=== PATIENT | female | born 1970 | race Caucasian/White ===

== ENCOUNTER → 2016-04-30 | Outpatient (CLI) | payer BC ==
[~2016-04-30] MED LIST: ALBUAER2 INH; ASPI81TA28 PO; CHOL20009 PO; LEVO50TA6 PO; MONT1TAB5 PO; MULT-513 PO; OPTIRAY 320 IV PRN
--- NOTE | 2016-04-30 07:36 | DIAGNOSTIC IMAGING REPORT ---
CHEST CT WITH CONTRAST CT DOSE: 267.53 mGy.cm HISTORY: Pulmonary nodules F/U PULMONARY NODULES TECHNIQUE: Multiaxial CT images of the chest were performed following the intravenous administration of contrast. COMPARISON: 10/21/2015 FINDINGS: Unchanging micronodule area of the right upper lobe and left upper lobe. No change in size or configuration. No new or interval findings. Lungs otherwise appear clear. There is no significant mediastinal or hilar adenopathy. Fatty infiltration of liver is noted. IMPRESSION: No significant abnormality identified within the chest. Stable pulmonary micronodule Please refer to below summary of Fleischner criteria recommendations for follow-up of incidental CT nodules (Chasity Stokes, Guidelines for management of small pulmonary nodules detected on CT scans: A statement from the Fleischner Society, Radiology 237: [phone].) Low Risk Patient: Minimal or no smoking or other known risk factors for malignancy <=4 mm: No follow-up needed. >4-6 mm: Initial follow-up CT at 12 months; if unchanged, no further follow-up. >6-8 mm: Initial follow-up CT at 6-12 months then at 18-24 months if no change. >8 mm: Follow-up CT at \R\3, 9, 24 months, or PET and/or biopsy. High Risk Patient: History of smoking or other known risk factors <=4 mm: Follow-up at 12 months; if unchanged, no further follow-up. >4-6 mm: Initial follow-up CT at 6-12 months then at 18-24 months if no change. >6-8 mm: Initial follow-up CT at 3-6 months then at 9-12 and 24 months if no change. >8 mm: Same as low risk patient. Note: Nodule size measured as average of length and width. Ground glass or partly solid nodules may require longer follow-up to exclude indolent adenocarcinoma. Electronically signed by: Eleno Quesada M.D. 04/30/2016 7:35 AM Dictated Date/Time: 04/30/2016 7:31 AM
== END | disposition home or self-care (01) ==
LOC: C.CTS 06:41
PROVIDERS: ATTEND Internal Medicine
DX: R91.1 Solitary pulmonary nodule (principal)

== ENCOUNTER → 2016-07-16 | Outpatient (CLI) | payer BC ==
[~2016-07-16] MED LIST changes: -OPTIRAY 320 IV PRN
--- NOTE | 2016-07-16 13:03 | DIAGNOSTIC IMAGING REPORT ---
RIGHT ANKLE MIN 3 VIEWS ROUTINE CLINICAL HISTORY: Right ankle pain. COMPARISON: None DISCUSSION: No acute fractures are visualized. There is a corticated ossicle adjacent to the distal fibula. This is felt to be old. There is a prominent lateral process of the talus. There are no erosive or destructive changes. There is no evidence for soft tissue swelling. IMPRESSION: No acute fractures. No erosive or destructive changes are visualized. Electronically signed by: Mikhail Hernadez M.D. 07/16/2016 1:02 PM Dictated Date/Time: 07/16/2016 1:01 PM
== END | disposition home or self-care (01) ==
LOC: C.RAD 12:34
PROVIDERS: ATTEND Physician Assistant Surgical
DX: M25.571 Pain in right ankle and joints of right foot (principal)

== ENCOUNTER → 2017-02-04 | Outpatient (CLI) | payer BC ==
--- NOTE | 2017-02-05 14:29 | MAMMOGRAPHY REPORT ---
BILATERAL DIGITAL DIAGNOSTIC MAMMOGRAM TOMOSYNTHESIS WITH CAD AND TARGETED RIGHT ULTRASOUND: 02/05/20 CLINICAL HISTORY: 46-year-old woman presents for follow-up in the right breast. She has a history of benign biopsy of a mass in the 8:00 axes and presented to follow-up other smaller benign-appearing m asses. She also reports pain in the right breast lower inner quadrant today. TECHNIQUE: Right breast tomosynthesis in addition to standard 2D mammography was performed. Current nandini durán was also evaluated with a Computer Aided Detection (CAD) system. COMPARISON: Comparison is made to exams dated: 01/30/2016 ultrasound, 01/30/2016 mammogram, 6 ultrasound, 08/08/2015 mammogram, 02/21/2015 ultrasound biopsy, and 02/21/2015 mammogram - [facility]. BREAST COMPOSITION: The tissue of both breasts is heterogeneously dense, which may obscure small mas ses. FINDINGS: A square-shaped pain marker overlies the lower inner middle one third of the right breast. There is a stable ribbon-shaped biopsy marker clip associated with a circumscribed lobulated 8.8 x 5 .5 x 7.4 mm mass in the central versus 8:00 middle one third of the right breast. On the CC projecti on the mass is measuring slightly larger comparing to prior mammograms but this could be positional. There is a stable oval circumscribed 5.5 mm mass in the upper outer anterior right breast, and a sta ble to decreased mass in the slightly medial posterior right breast, best seen on the CC view. No ne w suspicious spiculated or irregular mass, new asymmetry, focal area of distortion or suspicious micr ocalcifications are seen in both breasts. Targeted ultrasound was performed of the right breast evaluating the area of pain pointed out by the patient, and also throughout the lateral breast to assess the benign-appearing masses. In the area o f pain in the 3:00 to 4:00 axes of the right breast, sonographically normal tissue is seen without a suspicious solid or cystic mass. In the 2:00 right breast, 1 cm from the nipple, there is a lobulate d hypoechoic solid versus cystic mass measuring 2.0 x 2.6 x 3.2 mm. This is decreased in size compar ing to the prior ultrasound dated 01/31/2015 at which time it measured 3.0 x 3.2 x 4.1 mm, confirming benignity. In the right 8:00 breast, 1 cm from the nipple, a lobulated hypoechoic solid appearing m ass is again identified measuring 8.7 x 4.2 x 6.5 mm. In the 9:00 right breast, 2-3 cm from the nipp le there is an isoechoic oval parallel circumscribed mass measuring 6.8 x 3.1 x 5.9 mm, previously me asured 6.3 x 3.3 x 8.5 mm. An isoechoic circumscribed mass in the 9:00 right breast, 1 cm from the n ipple measures 3.7 x 4.0 x 4.4 mm. This has not significantly changed given slight differences in me asuring technique, it previously measured 2.8 x 4.1 x 4.2 mm. IMPRESSION: ACR-BI-RADS CATEGORY 3: PROBABLY BENIGN, TARGETED ULTRASOUND ACR-BI-RADS CATEGORY 3: PRO BABLY BENIGN 1. Stable mammographic appearance of the left breast, without mammographic evidence of malignancy. Advise follow-up in 1 year. 2. There are stable benign-appearing circumscribed mammographic masses throughout the right breast a nd stable benign-appearing solid masses on ultrasound. A mass with associated biopsy marker clip in the 8:00 central right breast mammographically appeared slightly increased in size on the CC projecti on, but this is thought to be positional as it does not appear significantly larger based on ultrasou nd measurements and prior ultrasounds. Nevertheless another short interval follow-up right diagnosti c tomosynthesis mammogram and repeat ultrasound is recommended to ensure stability in 6 months. Part icular attention should be paid to the right breast 8:00 and 9:00 axes on ultrasound. These results and recommendations were discussed with the patient at the time of the exam. Approximately 10% of breast cancers are not detected with mammography. A negative mammographic report should not delay biopsy if a clinically suggestive mass is present. Sophie Santos M.D. 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
== END | disposition home or self-care (01) ==
LOC: C.MAMM 08:01
PROVIDERS: ATTEND Internal Medicine
DX: R92.8 Other abnormal and inconclusive findings on diagnostic imaging of breast (principal); N63.10 Unspecified lump in the right breast, unspecified quadrant

== ENCOUNTER → 2017-07-29 | Outpatient (CLI) | payer BC ==
--- NOTE | 2017-07-29 15:26 | MAMMOGRAPHY REPORT ---
UNILATERAL RIGHT DIGITAL DIAGNOSTIC MAMMOGRAM TOMOSYNTHESIS WITH CAD AND TARGETED RIGHT ULTRASOUND: CLINICAL HISTORY: Patient presents for follow-up in the right breast. She underwent biopsy of a mass in the 8:00 right breast on February 21, 2015, which yielded fibrocystic change with apocrine metapla jessica. She was followed up given the masslike features of the biopsied lesion and it was possibly incr eased in size mammographically on subsequent follow-ups. Patient presents for reassessment of the ri ght breast including the previously biopsied mass in the 8:009:00 anterior breast. TECHNIQUE: Right breast tomosynthesis in addition to standard 2D mammography was performed. Current study was also evaluated with a Computer Aided Detection (CAD) system. COMPARISON: Comparison is made to exams dated: 02/04/2017 ultrasound, 02/04/2017 mammogram, 01/30/20 16 mammogram, 08/08/2015 mammogram, 01/31/2015 mammogram, and 01/21/2015 mammogram - [facility]. BREAST COMPOSITION: There are scattered areas of fibroglandular density in the right breast. FINDINGS: There is a stable ribbon-shaped biopsy marker clip in the central versus 8:00 to 9:00 midd le one third of the right breast, denoting the site of prior benign ultrasound-guided core biopsy. T he mass containing the associated biopsy marker clip is best identified on the tomosynthesis images a nd demonstrates circumscribed borders with lobulated morphology. No associated calcification or arch itectural distortion. It currently measures 8.6 x 8.6 x 8.6 mm, which is slightly increased in size comparing to prior tomosynthesis mammograms. Further evaluation with ultrasound was performed. Ther e is a stable oval circumscribed 5 mm mass in the lateral anterior right breast in the CC projection. No other new suspicious masses, asymmetries, areas of architectural distortion or calcifications ar e identified in the right breast. Targeted ultrasound was performed in the right breast with particular attention to the 8:00 and 9:00 axes. A lobulated and circumscribed parallel mass is again identified in the approximate 8:00 to 9:0 0 axis, 2 cm from the nipple, currently labeled 8:00 axis, 1 cm from the nipple. This mass currently measures 8.3 x 4.3 x 7.8 mm, previously measured 6.5 x 4.6 x 5.4 mm on January 31, 2015 ultrasound. Given the slow interval increase in size comparing to prior ultrasounds, this mass remains indeterm inate and surgical consultation for surgical excision is recommended. In the adjacent 9:00 right breast, 1 cm from the nipple, there is an isoechoic mass versus normal fat lobule measuring 6.2 x 2.6 x 7.3 mm, which appears similar to prior ultrasounds dating back to at ast February 04, 2017 and is most likely benign. IMPRESSION: ACR BI-RADS CATEGORY 4: SUSPICIOUS, TARGETED ULTRASOUND ACR BI-RADS CATEGORY 4: SUSPICIO US 1. There is slow interval increase in size of the previously biopsied benign mass in the 8:00 to 9:0 0 right breast, approximately 2 cm from the nipple, which currently measures 8.3 x 4.3 x 7.8 mm. Giv en the slow interval change, this mass is indeterminate and surgical consultation for surgical excisi on is recommended (this mass contains the associated ribbon-shaped biopsy marker clip from prior diane gn core biopsy). Preoperative needle localization is recommended. 2. Stable sonographic appearance of an adjacent oval isoechoic mass versus fat lobule in the 9:00 ri ght breast approximately 3 cm from the nipple, measuring 6.8 mm. 3. No other significant interval mammographic change in the right breast. These results and recommendations were discussed with the patient at the time of the exam. The patie nt will reconsult with Dr. Sharp regarding the above recommendations. Approximately 10% of breast cancers are not detected with mammography. A negative mammographic report should not delay biopsy if a clinically suggestive mass is present. Sophie Santos M.D. 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
== END | disposition home or self-care (01) ==
LOC: C.MAMM 08:44
PROVIDERS: ATTEND Internal Medicine
DX: N63.13 Unspecified lump in the right breast, lower outer quadrant (principal); R92.8 Other abnormal and inconclusive findings on diagnostic imaging of breast

== ENCOUNTER → 2017-08-05 | Outpatient (CLI) | payer BC ==
[2017-08-05 17:41] LABS: BASO % 0.4 %; BASO ABS # 0.03 K/uL (0-0.2); EOS % 3.5 %; EOS ABS # 0.26 K/uL (0-0.5); HEMATOCRIT 46.3 % (37-47); HEMOGLOBIN 15.4 g/dL (12.0-16.0); IG# 0.02 K/uL (0.00-0.02); LYMPH % 32.1 %; LYMPH ABS # 2.41 K/uL (1.2-3.4); MEAN CORPUSCULAR HEMOGLOBIN 29.6 pg (25-34); MEAN CORPUSCULAR HGB CONC 33.3 g/dl (32-36); MEAN PLATELET VOLUME 11.6 fL (7.4-10.4); NEUT % 55.7 %; NEUT ABS # 4.19 K/uL (1.4-6.5); PLATELET COUNT 130 K/uL (130-400); RED CELL DISTRIBUTION WIDTH CV 13.7 % (11.5-14.5); RED CELL DISTRIBUTION WIDTH SD 44.4 fL (36.4-46.3); WHITE BLOOD COUNT 7.51 K/uL (4.8-10.8)
[2017-08-05 18:02] LABS: ALBUMIN 3.9 gm/dl (3.4-5.0); ALKALINE PHOSPHATASE 105 U/L (45-117); ALT/SGPT 106 U/L (12-78); AST/SGOT 47 U/L (15-37); BLOOD UREA NITROGEN 16 mg/dl (7-18); CALCIUM 9.4 mg/dl (8.5-10.1); CARBON DIOXIDE 28 mmol/L (21-32); CHOLESTEROL 211 mg/dl (0-200); CREATININE 0.82 mg/dl (0.60-1.20); GLUCOSE 98 mg/dl (70-99); LDL CHOLESTEROL CALCULATED 112 mg/dl; POTASSIUM 3.8 mmol/L (3.5-5.1); SODIUM 143 mmol/L (136-145); TOTAL PROTEIN 7.6 gm/dl (6.4-8.2)
== END | disposition home or self-care (01) ==
LOC: C.LAB1850 16:28
PROVIDERS: ATTEND Physician Assistant Medical
DX: E03.9 Hypothyroidism, unspecified (principal); E55.9 Vitamin D deficiency, unspecified